=== PATIENT | male | born 1995 | race Caucasian/White ===

== ENCOUNTER 2018-06-04 16:28 | Emergency (ER) | payer MEDICARE ==
[~2018-06-04] VITALS: Ht 185.4 cm; Wt 163.3 kg
== END 2018-06-04 17:20 | disposition home or self-care (01) ==
LOC: FSED 16:28
DX: L02.31 Cutaneous abscess of buttock (principal)
CPT/HCPCS: 99283

== ENCOUNTER 2018-12-24 18:52 | Emergency (ER) | payer MEDICARE ==
[~2018-12-24] VITALS: Ht 185.4 cm; Wt 163.3 kg
--- OUTSIDE RECORDS SUMMARY | 2018-12-24 18:54 | XMS REPORT | Continuity of Care Document ---
Author Author [facility] Interface Address Unknown Phone Unavailable Problems Problem Status Onset Date Classification Date Reported Comments Source Medications Medication Details Route Status Patient Instructions Ordering Provider Order Date Source Allergies, Adverse Reactions, Alerts Substance Category Reaction Severity Reaction type Status Date Reported Comments Source Immunizations Immunization Date Given Site Status Last Updated Comments Source Results Order Name Results Value Reference Range Date Interpretation Comments Source Vital Signs Vital Sign Value Date Comments Source Encounters Location Location Details Encounter Type Encounter Number Reason For Visit Attending Provider ADM Date DC Date Status Source Outpatient [id number] SAEED ZARATE 03/07/2018 Active [facility] Procedures Procedure Code Date Perfomer Comments Source
--- NOTE | 2018-12-24 19:27 | Diagnostic Imaging Report ---
EXAM: XR CHEST 1 VIEW DATE: 12/24/2018 12:00 AM INDICATION: Cough COMPARISON: None FINDINGS: Lines and Tubes: None Heart and Mediastinum: No acute cardiomediastinal findings. Lungs and Pleura: No significant pleural effusion, pneumothorax, or focal consolidation. Bones and Soft Tissues: No acute findings. IMPRESSION: 1. No acute cardiopulmonary findings. Signed by: Dr. Zechariah Abarca MD on 12/24/2018 7:24 PM
[2018-12-24] MEDS ORDERED: ALBUTEROL/IPRATROPIUM 3 ML NEB NEB ONE (19:45)
[2018-12-24] MEDS ORDERED: METHYLPREDNISOLONE SOD SUCC 125 MG/2ML VIAL IM ONE (20:15)
== END 2018-12-24 20:20 | disposition home or self-care (01) ==
LOC: FSED 18:52
DX: R06.00 Dyspnea, unspecified (principal); J45.41 Moderate persistent asthma with (acute) exacerbation
CPT/HCPCS: 71045; 99283; J2930